=== PATIENT | female | born 2000 | race Caucasian/White ===

== ENCOUNTER 2024-04-16 13:15 | Emergency (ER) | payer BC, SELFPAY ==
[2024-04-16 13:33] VITALS: BP 118/85
--- NOTE | 2024-04-16 13:35 | ED.GENMED ---
ED Provider Triage
<Nicolasa Carolina PA-C - Last Filed: 04/16/24 13:43>
-
Patient seen by provider in Triage?: Seen in Triage
Attestation: A medical screening examination has been initiated by a qualified medical provider. Based on the assessment performed at this time, it has been determined that an emergent medical condition may exist and the patient has been informed
that further medical evaluation and possible additional diagnostic testing may be needed.
HPI: 24yoF here with epigastric pain that started worsening this morning. Coming in waves. Described as burning. Radiates to back.
GENERAL: Alert , in no apparent distress
EYE: No visual abnormalities.
NECK: Trachea midline
ENT: No visible abnormalities.
LUNGS: No acute respiratory distress
NEUROLOGICAL: Alert and oriented
SKIN: Skin intact. No visible changes.
MUSCULOSKELETAL: Moving extremities normally
PSYCH: Normal and appropriate interaction.
This is a medical evaluation conducted in person to initiate diagnostic evaluation and provide initial therapeutics. Please see further documentation by the treating clinician.
Abdominal labs, HCG, and upper abdominal ultrasound ordered. PO GI cocktail ordered.
History of Present Illness
<Nicolasa Carolina PA-C - Last Filed: 04/16/24 13:43>
General
Chief Complaint: Abdominal Pain
Time Seen by Provider: 04/16/24 15:35
<Jimenez Olivas PA-C - Last Filed: 04/16/24 20:11>
General
Source: patient and family
History of Present Illness
History of Present Illness:
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
acutely worse after eating breakfast described to be a burning sensation radiating across her upper abdomen associated with nausea but no vomiting, now more mild although still present. Patient has been working with a journeyman electrician pv installer for some GI
issues in addition to the after mentioned abdominal pain and has been gluten-free, dairy free, sugar-free and eating pretty much a bland diet over the last few weeks as well. She denies any chest pain, shortness of breath, fevers or infectious
symptoms, abnormal weight loss, urinary symptoms. Patient does have some loose stool which she says is part of the more ongoing GI issues she has had. Notes that at a offal trimmer appointment yesterday patient was started on Plaquenil and
meloxicam but notes she has yet to start taking these. She normally does not take many NSAIDs and if she does have any pains she is normally taking Tylenol.
Past History
<Nicolasa Carolina PA-C - Last Filed: 04/16/24 13:43>
Past History
ED Past Medical History: Other (Lyme disease)
ED Past Surgical History: Other (Umbilical hernia/wisdom teeth)
Social History
Tobacco: Non-smoker
Personal: Single
Living: with family
Family History
Family History: Other (Autoimmune disease)
<Jimenez Olivas PA-C - Last Filed: 04/16/24 20:11>
Social History
Alcohol: Occasional
Drug: None
Review of Systems
<Jimenez Olivas PA-C - Last Filed: 04/16/24 20:11>
Review of Systems
All Other Systems: ROS reviewed and negative except as documented in HPI and ROS
Phy Exam
<Jimenez Olivas PA-C - Last Filed: 04/16/24 20:11>
Physical Exam
Physical Exam:
GENERAL: Alert , in no apparent distress
EYE: clear conjunctiva b/l
HEAD: NCAT
ENT: mmm.
CARDIAC: Regular rate and rhythm .
LUNGS: Clear breath sounds bilaterally, no acute respiratory distress, no wheezes/rales/rhonchi
ABDOMEN: Soft, epigastric tenderness to palpation, no r/g, no cvat, negative Khalil sign, no tenderness at McBurney's point
NEUROLOGICAL: Alert and oriented
SKIN: Warm and dry, skin intact.
MUSCULOSKELETAL: well perfused.
PSYCH: Normal and appropriate interaction.
Scores
<Jimenez Olivas PA-C - Last Filed: 04/16/24 20:11>
Heart Failure Risk
Heart Failure Risk Score: Not Applicable
Heart Score for Chest Pain Patients
STEMI patient?: Not applicable
Withdrawal Assessment of Alcohol
Withdrawal Assessment Completed?: Not applicable
Course
<Nicolasa Carolina PA-C - Last Filed: 04/16/24 13:43>
Orders/Labs/Results
Orders:
Orders
04/16/24 13:41
Famotidine [Pepcid] 20 mg PO NOW STA
Sucralfate Suspension [Carafate Suspension] 1 gm PO NOW STA
Test Result ONCE
US Abdomen Complete/Upper Urgent
Comment:
Reason For Exam: Epigastric pain
04/16/24 13:45
Complete Blood Count/With Diff Urgent
Comprehensive Metabolic Panel Urgent
HCG, Serum Qualitative Screen Urgent
Comment: ADD ON
Lipase Urgent
04/16/24 15:38
Add On- LAB Stat
Tests Added?: HCG qualitative
04/16/24 16:20
Urinalysis Urgent
Date Specimen was Collected: 04/16/24
Time Specimen was Collected: 16:10
04/16/24 16:43
Mag Hydrox/Al Hydrox/Simeth [Maalox] 30 ml Phenobarb/Hyoscy/Atropine/Scop [] 10 ml Viscous Lidocaine 2% [Xylocaine Viscous Cup] 10 ml PO NOW
04/16/24 16:46
Phenobarb/Hyoscy/Atropine/Scop [] 10 ml .ROUTE .ST-MED ONE
04/16/24 16:47
Mag Hydrox/Al Hydrox/Simeth [Maalox] 30 ml .ROUTE .STK-MED ONE
Viscous Lidocaine 2% [Xylocaine Viscous Cup] 15 ml .ROUTE .STK-MED ONE
Abnormal Lab Results
04/16/24
13:45
WBC 11.6 H 10^3/uL
(4.8-10.8)
MCH 32.9 H pg
(27.0-31.0)
MPV 11.0 H fL
(7.4-10.4)
Absolute Neuts (auto) 8.4 H 10^3/uL
(1.4-6.5)
BUN 6 L mg/dl
(7-17)
04/16/24 13:45
04/16/24 13:45
Vital Signs
Initial and Last Documented VS:
Initial Vital Signs
Temp Pulse Resp BP Pulse Ox
98.3 F 106 16 118/85 98
04/16/24 13:33 04/16/24 13:33 04/16/24 13:33 04/16/24 13:33 04/16/24 13:33
Last Documented Vital Signs
Temp Pulse Resp BP Pulse Ox
98.3 F 106 16 118/85 98
04/16/24 13:33 04/16/24 13:33 04/16/24 13:33 04/16/24 13:33 04/16/24 13:33
<Jimenez Olivas PA-C - Last Filed: 04/16/24 20:11>
Orders/Labs/Results
Orders:
Orders
04/16/24 13:41
Famotidine [Pepcid] 20 mg PO NOW STA
Sucralfate Suspension [Carafate Suspension] 1 gm PO NOW STA
Test Result ONCE
US Abdomen Complete/Upper Urgent
Comment:
Reason For Exam: Epigastric pain
04/16/24 13:45
Complete Blood Count/With Diff Urgent
Comprehensive Metabolic Panel Urgent
HCG, Serum Qualitative Screen Urgent
Comment: ADD ON
Lipase Urgent
04/16/24 15:38
Add On- LAB Stat
Tests Added?: HCG qualitative
04/16/24 16:20
Urinalysis Urgent
Date Specimen was Collected: 04/16/24
Time Specimen was Collected: 16:10
04/16/24 16:43
Mag Hydrox/Al Hydrox/Simeth [Maalox] 30 ml Phenobarb/Hyoscy/Atropine/Scop [] 10 ml Viscous Lidocaine 2% [Xylocaine Viscous Cup] 10 ml PO NOW
04/16/24 16:46
Phenobarb/Hyoscy/Atropine/Scop [] 10 ml .ROUTE .STK-MED ONE
04/16/24 16:47
Mag Hydrox/Al Hydrox/Simeth [Maalox] 30 ml .ROUTE .STK-MED ONE
Viscous Lidocaine 2% [Xylocaine Viscous Cup] 15 ml .ROUTE .STK-MED ONE
Abnormal Lab Results
04/16/24
13:45
WBC 11.6 H 10^3/uL
(4.8-10.8)
MCH 32.9 H pg
(27.0-31.0)
MPV 11.0 H fL
(7.4-10.4)
Absolute Neuts (auto) 8.4 H 10^3/uL
(1.4-6.5)
BUN 6 L mg/dl
(7-17)
04/16/24 13:45
04/16/24 13:45
Vital Signs
Initial and Last Documented VS:
Initial Vital Signs
Temp Pulse Resp BP Pulse Ox
98.3 F 106 16 118/85 98
04/16/24 13:33 04/16/24 13:33 04/16/24 13:33 04/16/24 13:33 04/16/24 13:33
Last Documented Vital Signs
Temp Pulse Resp BP Pulse Ox
98.3 F 106 16 118/85 98
04/16/24 13:33 04/16/24 13:33 04/16/24 13:33 04/16/24 13:33 04/16/24 13:33
<Jimenez Olivas PA-C - Last Filed: 04/16/24 20:11>
MDM/Problems Addressed
Differential Diagnosis Includes:
GERD, gastritis, peptic ulcer disease, cholecystitis
MDM/Problems Addressed:
24-year-old female presenting to the emergency department for evaluation of upper abdominal pain that has been ongoing for a couple of weeks but acutely worse today after eating breakfast. She notes that the breakfast was pretty typical for her.
She notes that pain presently is much more tolerable than it was prior to arrival to the emergency department but still present. Labs were initiated while in triage which does show a mild leukocytosis but otherwise unremarkable chemistry and
urinalysis. Patient's pending abdominal ultrasound. Will order Magic mouthwash. Anticipate discharge home and outpatient management with GI. Discussed continued bland diet. We discussed calling her offal trimmer about potentially not taking
the meloxicam as this could potentially make GI symptoms worse. Will provide with information for GI and follow-up.
<Jimenez Olivas PA-C - Last Filed: 04/16/24 20:11>
*Radiology
Radiology exam reviewed: radiology read reviewed
*Pulse Oximetry
Patient hypoxic: no
*Critical Care Note
Total Time (30-74mins, 75-104mins- exclusive of procedures): Not Applicable
<Jimenez Olivas PA-C - Last Filed: 04/16/24 20:11>
Patient Management
Social determinants of health affecting care: Living situation and Strong social support
Escalation/DeEscalation of care consider admission/obs:
Ultrasound is unremarkable for any acute pathologies. Patient feels comfortable being discharged home. Prescription for omeprazole and Carafate sent to pharmacy. Patient and family aware of return precautions to the ER.
ED Attending Note
<Nicolasa Carolina PA-C - Last Filed: 04/16/24 13:43>
-
Portions of this chart may have been created with voice recognition software.� Occasional wrong word or��sound alike� substitutions may have occurred due to the inherent limitations of voice recognition software.
Discharge Plan
Departure
Patient Disposition: Home (Routine Discharge)
Date of Disposition: 04/16/24
Time of Disposition: 16:44
Patient with high blood pressure during this ER visit?: No
Discharge Problem:
Upper abdominal pain
Instructions: Gastritis (DC), Abdominal Pain
Prescriptions:
New
omeprazole 40 mg capsule,delayed release(DR/EC)
40 mg PO DAILY Qty: 30 0RF
sucralfate [Carafate] 100 mg/mL suspension
10 ml PO BID PRN (Reason: abdominal pain) Qty: 500 0RF
Referrals:
Kaushal Paez MD [Active] - (Gastroenterology)
Interventions
Interventions:
*Risk Screen - Suicide Last Done: 04/16/24 13:33
*General Assessment Last Done: 04/16/24 13:33
*Neglect/Abuse Screening Last Done: 04/16/24 13:33
ED- Fall Risk Assessment Last Done: 04/16/24 17:18
*ED COVID-19 Vaccine History Last Done: 04/16/24 16:30
*Nursing Disposition Last Done: 04/16/24 17:18
QZ-Bexoym-Unyqkhngla Assessment Last Done: 04/16/24 16:29
Discharge Date and Time
Discharge Date/Time: 04/16/24 17:15
Print Language: VENEZUELAN
[2024-04-16] MEDS: PEPCID 20 MG PO (13:47)
[2024-04-16] MEDS: CARAFATE SUSPENSION 1 GM PO (13:47)
[2024-04-16 13:52] LABS: % Basophils 0.2 % (0-2); % Eosinophils 0.8 % (0-6); % Immature Granulocytes 0.3 % (0-0.5); % Lymphocytes 20.8 % (20.5-51.1); % Monocytes 5.3 % (1.7-9.3); % Neutrophils 72.6 % (42.2-75.2); Absolute Eosinophils 0.1 10^3/uL (0-0.7); Absolute Lymphocytes 2.4 10^3/uL (1.2-3.4); Absolute Monocytes 0.6 10^3/uL (0.1-0.6); Absolute Neutrophils 8.4 10^3/uL (1.4-6.5); Hematocrit 39.7 % (37.0-47.0); Mean Corp Hgb Conc. 35.3 g/dL (33.0-37.0); Mean Corpuscular Hgb 32.9 pg (27.0-31.0); Mean Corpuscular Volume 93.4 fL (81.0-99.0); Nucleated Red Blood Cells % 0 %; Platelet Count 268 10^3/uL (130-400); Red Blood Cell Count 4.25 10^6/uL (4.20-5.40); Red Cell Dist. Width 12.4 % (11.5-14.5); White Blood Cell Count 11.6 10^3/uL (4.8-10.8)
[2024-04-16 14:06] LABS: ALT (SGPT) 24 U/L (0-35); AST (SGOT) 26 U/L (14-36); Alkaline Phosphatase 66 U/L (38-126); Blood Urea Nitrogen 6 mg/dl (7-17); Calcium 9.4 mg/dl (8.4-10.2); Carbon Dioxide 23 mmol/L (22-30); Chloride 105 mmol/L (98-107); Glucose 89 mg/dl (70-99); Lipase 86 U/L (23-300); Sodium 139 mmol/L (135-145); Total Bilirubin 0.4 mg/dl (0.2-1.3); eGFR > 60.00
[2024-04-16 16:25] LABS: HCG, Serum Qualitative Screen Negative
[2024-04-16 16:26] LABS: Urine Albumin Negative (Neg - Trace); Urine Bilirubin Negative (Negative); Urine Character Clear (Clear); Urine Color Yellow; Urine Glucose Negative (Negative); Urine Ketone Negative (Negative); Urine Leukocyte Negative (Negative); Urine Nitrite Negative (Negative); Urine Occult Blood Negative (Negative); Urine Urobilinogen Negative (Neg - 1+)
[2024-04-16 16:30] VITALS: BMI 25.8
[2024-04-16] MEDS: MAALOX 30 PO (16:53)
== END 2024-04-16 17:15 | disposition home or self-care (01) ==
LOC: EMR 13:15
PROVIDERS: Physician Assistant; Physician Assistant Medical; EMERGENCY PHYSICIAN Emergency Medicine; FAMILY PHYSICIAN Nurse Practitioner Family
DX: R10.10 Upper abdominal pain, unspecified (principal); E03.9 Hypothyroidism, unspecified
CPT/HCPCS: 99284; 76700; 80053; 81003; 83690; 84703; 85025